=== PATIENT | male | born 1955 | race Caucasian/White ===

== ENCOUNTER 2020-10-29 08:25 | Outpatient (CLI) | payer MEDICARE | END 2020-10-29 08:26 | disposition home or self-care (01) | LOC: RAD-FRANK 08:25 | PROVIDERS: ATTEND Nurse Practitioner Family | DX: M25.561 Pain in right knee (principal); M25.461 Effusion, right knee ==

== ENCOUNTER 2021-06-09 11:22 | Outpatient (CLI) | payer MEDICARE | END 2021-06-09 11:23 | disposition home or self-care (01) | LOC: RAD-FRANK 11:22 | PROVIDERS: ATTEND Nurse Practitioner Family | DX: M79.672 Pain in left foot (principal); S92.352A Displaced fracture of fifth metatarsal bone, left foot, initial encounter for closed fracture ==